=== PATIENT | female | born 2005 | race Caucasian/White ===

== ENCOUNTER 2023-03-03 02:00 | Observation (INO) | payer MEDICAID, SELFPAY ==
[2023-03-03] VITALS (10 sets, daily range): BP systolic 94–118; BP diastolic 53–77; PULSE 56–88; RESP 15–22; TEMP 36.8–37.2; O2SAT 98–100; BMI 20.7
--- NOTE | ~2023-03-03 | XR_ITS ---
XR abdomen/kub 1V DATE: 03/03/2023 04:15 INDICATION: Foreign body/anal beads in the rectum TECHNIQUE: 2 supine AP views of the abdomen COMPARISON: None FINDINGS: There appears to be a series of contiguous rounded mildly radiopaque foreign bodies overlyi ng the sacrum, the largest measuring up to approximately 3 cm diameter. Patient likely within the sig moid colon, well beyond the reach of digital rectal examination. No bowel obstruction is evident. The psoas shadows are intact. No visceromegaly is noted. Included skeletal structures are unremarkable. The lung bases are clear. Heart size appears normal. IMPRESSION: Rounded mildly radiopaque foreign bodies, likely in the sigmoid colon Reviewed, dictated and finalized at [facility]. Reviewed, dictated and finalized at [facility]. IMPRESSION: Rounded mildly radiopaque foreign bodies, likely in the sigmoid col on
--- NOTE | ~2023-03-03 | XR_ITS ---
XR abdomen obstructive series DATE: 03/03/2023 12:30 INDICATION: Anal bead foreign bodies TECHNIQUE: Supine and upright AP and lateral views COMPARISON: None FINDINGS: Faint radiopaque densities are suggested in the distal sigmoid colon. The psoas shadows are intact. No visceromegaly is evident. No abnormal calcification is detected. The re is no evidence of bowel obstruction or intraperitoneal free air. The lung bases are clear. Heart size appears normal. IMPRESSION: Faint radiopaque foreign bodies in the distal sigmoid colon Reviewed, dictated and finalized at [facility]. Reviewed, dictated and finalized at [facility].
--- NOTE | 2023-03-03 03:40 | ED.GENADULT ---
HPI - General Adult General Chief complaint: Unspecified <Toya Antonio PA-C - Last Filed: 03/03/23 17:09> Stated complaint: anal beads stuck in rectum. <Toya Antonio PA-C - Last Filed: 03/03/23 17:09> Time Seen by Provider: 03/03/23 03:36 <Toya Antonio PA-C - Last Filed: 03/03/23 17:09> History of Present Illness HPI narrative: 17-year-old female reports for evaluation of rectal beads stuck in her anus for 2 to 3 hours. Patient reports she feels like the anal beads are going up. denies pain, known rectal bleeding, abdominal pain, nausea, vomiting, diarrhea. She reports she is currently on her menstrual period. <KARIN Jolley Last Filed: 03/03/23 17:09> Related Data Home medications: Home Medications Medication Instructions Recorded Confirmed albuterol sulfate 90 mcg/actuation 2 puff inhalation QID 03/03/23 03/03/23 aerosol inhaler (ProAir HFA) etonogestrel 0.12 mg-ethinyl 1 vag ring vaginal [id number] 03/03/23 03/03/23 estradiol 0.015 mg/24 hr vaginal ring (EluRyng) <Toya Antonio PA-C - Last Filed: 03/03/23 17:09> Allergies/adverse reactions: Allergies Allergy/AdvReac Type Severity Reaction Status Date / Time No Known Allergies Allergy Verified 03/03/23 02:00 <KARIN Jolley Last Filed: 03/03/23 17:09> Review of Systems Review of Systems: CONSTITUTIONAL: Denies fever, chills EYES: Denies visual changes, redness, or discharge. ENT: Denies rhinorrhea, congestion, sore throat, or otalgia. CARDIOVASCULAR: Denies chest pain, palpitations, or edema. RESPIRATORY: Denies cough or dyspnea. GASTROINTESTINAL: Denies abdominal pain, nausea, vomiting, or diarrhea. GENITOURINARY: Denies dysuria or hematuria. SKIN: Denies rash or itching. MUSCULOSKELETAL: Denies back pain, joint pain, or myalgia. NEUROLOGIC: Denies headache, numbness, dizziness, or weakness. PSYCHIATRIC: Denies anxiety or depression. <Toya Antonio PA-C - Last Filed: 03/03/23 17:09> FOR[facility]LY [facility] Social History Social History: Social History Smoking status: Current every day smoker Alcohol intake: current Substance use: current Substance use type: marijuana Lack of Transportation: No Lack of Food: Never True Current Housing: I Have Housing Concerned About Future Housing: No Difficulty Paying Gas/Electric Bills: No Difficulty Paying for Meds: No Currently Unemployed: No Education: High School Diploma/GED Difficulty w/ Childcare or Family Care: No Spiritual care concerns: No <Toya Antonio PA-C - Last Filed: 03/03/23 17:09> Exam Narrative: GENERAL: Well-appearing, well-nourished, and in no acute distress. Patient resting comfortably in exam bed. She is pleasant and conversational. HEAD: Normocephalic, atraumatic. EYES: PERRLA and EOMI. CHEST: Clear to auscultation. No respiratory distress. No wheezes rales or rhonchi HEART: Regular rate and rhythm. No murmur heard. Normal peripheral pulses. ABDOMEN: Soft, nontender, nondistended, normal active bowel sounds. Rectal exam performed without evidence for palpation of foreign body. No rectal lesions, hemorrhoids or fissures. No areas of induration or fluctuation. EXTREMITIES: Normal range of motion. No edema. SKIN: Warm, dry, no rash. NEURO: No focal deficits. Alert and oriented x3. PSYCH: Normal mood and affect. <Toya Antonio PA-C - Last Filed: 03/03/23 17:09> Course [employer]/PA Physician Supervision This is a was performed by both a physician and an APC. I performed all aspects of the MDM as documented w/ the following additions: All questions answered. 17-year-old female presenting with anal beats lodged in her rectum. Patient will be admitted to surgery for removal.Patient in agreement w/ disposition. <Ivan Bonilla MD - Last Filed: 03/06/23 21:55> Vital Signs Vital signs: Vital Signs Tempera
[2023-03-03 04:00] LABS: Basophils Percent Auto 0.4 % (0.2-1.2); Eosinophils Percent Auto 0.3 % (0-4.4); Hematocrit 42.2 % (37.0-47.0); Hemoglobin 13.3 g/dL (12.0-15.0); Immature Granulocyte Absolute 0.02 K/mm3 (0.00-0.031); Immature Granulocyte Percent A 0.2 % (0-0.5); Lymphocytes Absolute Auto 3.22 K/mm3 (0.9-3.2); Lymphocytes Percent Auto 29.3 % (18.3-44.2); Mean Corpuscular HGB Conc 31.5 g/dl (32-36); Mean Corpuscular Hemoglobin 26.3 pg (26-34); Mean Corpuscular Volume 83.4 fl (80-100); Mean Platelet Volume 10.4 fl (7.4-10.4); Monocytes Absolute Auto 0.9 K/mm3 (0.1-0.6); Monocytes Percent Auto 8.2 % (2.6-8.5); Neutrophils Absolute Auto 6.8 K/mm3 (1.3-6.7); Neutrophils Percent Auto 61.6 % (45.5-73.1); Platelet Count Result 319 k/mm3 (150-375); Red Blood Count 5.06 M/mm3 (4.2-5.4); Red Cell Distribution Width 13.9 % (11.5-14.5)
[2023-03-03 04:10] LABS: Alanine Aminotransferase 17 U/L (6-35); Alkaline Phosphatase 53 U/L (45-116); Anion Gap 11 mmol/L (8-16); Aspartate Amino Transferase 24 U/L (14-36); Bilirubin,Total 0.5 mg/dL (0.2-1.3); Blood Urea Nitrogen 12 mg/dL (8-21); Calcium 9.7 mg/dL (8.9-10.7); Carbon Dioxide 26 mmol/L (22-30); Chloride 106 mmol/L (98-107); Estimated CRCL calculation 125 ml/min; Estimated Glomerular Filt Rate > 60; Glucose 96 mg/dL (65-110); Potassium 3.8 mmol/L (3.4-5.0); Sodium 143 mmol/L (134-143)
[2023-03-03 04:15] LABS: Appearance Urine Clear (Clear); Bacteria Urine None Seen /hpf; Bilirubin Urine Negative (Negative); Blood Urine 1+ (Negative); Color Urine Yellow (Yellow); Glucose Urine UA Negative (Negative); Ketones Urine Negative (Negative); Leukocyte Esterase Ur Negative LEU/UL (Negative); Nitrate Urine Negative (Negative); Non Pathogenic Casts 0-2; Protein Urine Negative (Negative); Specific Grav Ur 1.025 (1.001-1.035); Squamous Epithelial Cell Urine None seen /hpf (Few); WBC Urine 0-5 /hpf; pH Urine 6.5 (5.0-9.0)
[2023-03-03 04:28] LABS: Add Urine Microscopic? YES
[2023-03-03] MEDS: SODIUM CHLORIDE 0.9% IV 1,000 ML 125 ML IV CONT (06:19)
--- NOTE | 2023-03-03 06:42 | PC.NURSE ---
pt a&o x4. able to make needs known. pt was educated about the use of a call light, safety precautions, how to call for help. pt resting comfortably in bed. pt is a 17 yo female with foreign body in the rectum. Dr Kim consulted, pt is NPO for the procedure to remove the rectal beads. pt is aware of NPO status, compliant. all needs met at this time, denies pain, nausea. all questions answered.
--- NOTE | 2023-03-03 12:12 | PM.IMHP ---
H&P: HPI History of Present Illness Date/Time: 03/03/23 12:12 Chief Complaint: Rectal foreign body Narrative: Patient is a 17-year-old woman who was using anal beads during intercourse. The beads became lost in the rectum and could not be retrieved. She was seen in the emergency room and plain films showed a rectal foreign body but it was in the sigmoid area. They were not palpable by digital exam per the emergency room provider. Patient was admitted for observation. She is having some mild lower abdominal pain but no severe pain and is quite hungry. She has not had a bowel movement on nor has she had any nausea or vomiting. She describes the beads as about 6-7 inches in length, silicone, with a heart-shaped grasper at 1 end. She is admitted now for rectal foreign body. I have reviewed her plain films with Dr. Zhong, radiologist. The foreign body does seem to be in the sigmoid up near the sacrum and unlikely to be within reach of a digital rectal exam. Review of Systems Review of Systems: All systems reviewed & are unremarkable except as noted in HPI and below (HPI and those items noted below) Constitutional: Constitutional: Denies chills and Denies fever(s) Cardiovascular: Cardiovascular: Denies chest pain, Denies diaphoresis, Denies dyspnea and Denies paroxysmal nocturnal dyspnea Respiratory: Respiratory: Denies chest congestion, Denies cough and Denies dyspnea Integumentary/Breasts: Skin/Breast: Denies lesions and Denies rash PMFSH Social History Social History Smoking status: Current every day smoker Alcohol intake: current Substance use: current Substance use type: marijuana Lack of Transportation: No Lack of Food: Never True Current Housing: I Have Housing Concerned About Future Housing: No Difficulty Paying Gas/Electric Bills: No Difficulty Paying for Meds: No Currently Unemployed: No Education: High School Diploma/GED Difficulty w/ Childcare or Family Care: No Spiritual care concerns: No Meds Home Medications and Allergies Home Medications Medication Instructions Recorded Confirmed Type albuterol sulfate 90 mcg/actuation 2 puff inhalation QID 03/03/23 03/03/23 History aerosol inhaler (ProAir HFA) etonogestrel 0.12 mg-ethinyl 1 vag ring vaginal [id number] 03/03/23 03/03/23 History estradiol 0.015 mg/24 hr vaginal ring (EluRyng) Allergies Allergy/AdvReac Type Severity Reaction Status Date / Time No Known Allergies Allergy Verified 03/03/23 02:00 Vital Signs Vital Signs - 24 hr 03/03/23 02:02 03/03/23 02:22 03/03/23 02:31 Temperature 37.2 C Pulse Rate 88 73 87 Respiratory Rate 18 16 22 H Blood Pressure 114/69 113/77 Pulse Oximetry 99 100 100 Oxygen Delivery 03/03/23 03:00 03/03/23 04:14 03/03/23 05:00 Temperature Pulse Rate 69 66 62 Respiratory Rate 19 15 16 Blood Pressure Pulse Oximetry 99 100 100 Oxygen Delivery 03/03/23 05:33 03/03/23 05:53 03/03/23 06:00 Temperature 36.8 C Pulse Rate 60 60 56 L Respiratory Rate 16 16 20 Blood Pressure 104/60 94/53 L Pulse Oximetry 100 100 98 Oxygen Delivery Room Air Exam Const: General: comfortable, no acute distress, alert and awake HENMT: Head: normocephalic and atraumatic Mouth: Yes Normal oral and palatal mucosa present Eyes: Conjunctivae: conjunctivae normal Pupils: Equal, round and reactive pupils present EOM: EOMs intact bilaterally Neck: Neck: normal visual inspection, no lymphadenopathy and nontender Resp: Effort & Inspection: normal respiratory effort Auscultation: clear to auscultation bilaterally Cardio: Rate: regular rate Rhythm: regular rhythm Heart sounds: no gallops, no murmurs and no rubs GI: Inspection: non-distended, scaphoid and no scars GI Palp: Yes Soft to palpation, No Tenderness to palpation present (GI), No Hepatomegaly present, No Splenomegaly present, No Hernia present, No Pal
[2023-03-03] MEDS: ALBUTEROL SULFATE (*SP) AEROSOL 1 PUFF 2 PUFF INHALATION (13:31)
--- NOTE | 2023-03-04 16:25 | PM.DS ---
DS: Admitting Diagnosis Discharge Date 03/03/23 Admitting Diagnosis Rectal foreign body DS: Discharge Diagnosis Discharge Diagnosis (1) Foreign body anus/rectum: Qualifiers: Encounter type: initial encounter Qualified Code(s): T18.5XXA - Foreign body in anus and rectum, initial encounter Code(s): T18.5XXA - Foreign body in anus and rectum, initial encounter Status: Acute DS: Summary Hospital Course Hospital Course: Patient was seen in the emergency room early in the morning of 03/03/2023. She had a history of using anal beads and having lost the beads in her rectum. The beads were not within the reach of the examiner's finger in the emergency room. X-ray showed them to be in the area of the sigmoid colon. Patient was brought in the hospital for observation. She was given to do collects tabs. She did pass the anal the this on her own following the laxative. She was comfortable and able to be discharged later in the day on 03/03/2023. Status at Discharge Functional status at discharge: independent ambulation Overall status at discharge: patient is back to baseline Time Spent with Patient Time attestation: Total time spent providing and/or coordinating discharge services: Time spent: Less than 30 minutes Discharge Plan Discharge Attending physician on discharge: Radames Kim Consulting providers: Darío Zhong ; Toya Antonio Discharging Clinician: Radames Kim Anticipated Discharge Date/Time: 03/03/23 14:23 Patient Disposition: Home, Self-Care Activity: as tolerated Diet: regular Discharge Instructions: Follow up with your PCP or Dr. Kim as needed Patient Instructions: Antibiotic Form, Rectal Foreign Body (DC) Stand Alone Forms: General Discharge Information Follow-up/Referrals: Radames Kim MD [Physician] - Discharge Medications: Continued albuterol sulfate [ProAir HFA] 90 mcg/actuation HFA aerosol inhaler 2 puff INHALATION QID etonogestrel-ethinyl estradiol [EluRyng] 0.12-0.015 mg/24 hr ring 1 vag ring VAGINAL [id number] Date of admission: 03/03/23 05:02 Primary Care Provider: Ruperto,Veronika Salazar Admitting Provider: Radames Kim Attending physician on admission: Radames Kim Condition: Stable
== END 2023-03-03 14:40 | disposition home or self-care (01) ==
LOC: ANHED 04:43 → ANH2MED 05:43
PROVIDERS: Admitting Provider Surgery; Emergency Provider Physician Assistant; PCP Pediatrics; Visit Provider Surgery
DX: T18.5XXA Foreign body in anus and rectum, initial encounter (principal); X58.XXXA Exposure to other specified factors, initial encounter; R10.30 Lower abdominal pain, unspecified; F17.210 Nicotine dependence, cigarettes, uncomplicated; F10.90 Alcohol use, unspecified, uncomplicated; F12.90 Cannabis use, unspecified, uncomplicated; Z79.51 Long term (current) use of inhaled steroids; Z97.5 Presence of (intrauterine) contraceptive device
CPT/HCPCS: 36415; 74018; 74019; 80053; 81001; 81025; 85025; 99285; A9270; G0378; J7030

== ENCOUNTER 2024-08-13 01:59 | Day surgery (SDC) | payer OTHER, SELFPAY ==
[2024-08-11 13:38] VITALS: BMI 18.2
--- NOTE | 2024-08-11 13:39 | PCDIET ---
Report to the Outpatient Waiting Room, entrance under the green pavilion located off [facility], at time _0800_ on date _[id number]_. Planned Procedure Time: _1000_.? Time changes happen often and if your time is changed the preop area will call you the afternoon before. - You and your visitor will be asked to self-screen and do not enter if you have any COVID symptoms. Please call surgeon if you need to reschedule. - A mask is optional within the hospital at this time. Patients may have clear liquids (water, carbonated beverages, clear teas, apple juice) until 3 hours prior to surgery with a maximum of 20 ounces. - No food from midnight until time of surgery and no smoking Take only the following medications with a SIP of water on the morning of surgery: ___Tramadol if needed. DO NOT STOP ANY OF YOUR OTHER PRESCRIPTION MEDICATIONS PRIOR TO SURGERY EXCEPT THE FOLLOWING Medications to discontinue per physician ____None Please no make-up, nail british, hairspray, perfume, deodorant, or body powder the day of surgery.? No jewelry (including any body piercings) or valuables the day of surgery, leave them at home.? Please take a shower or bath the night before, or the morning of, surgery with an antibacterial soap.? Wear comfortable, loose fitting clothing.? - Jewelry must be removed prior to entering the operating room.? Rings and piercings that are not removed may be cut off. - The hospital will not accept responsibility for valuables.? - Please leave all valuables, including medications, at home the day of surgery. If you are going home after surgery, a licensed water tanker driver must drive you home.? - NO public transportation without another adult if you receive anesthesia. - We recommend that an adult stay with you for 24 hours following discharge. - We also recommend that you do not drive, make important decision, drink alcoholic beverages, or take any drugs that were not prescribed by your health care provider for at least 24 hours after your discharge time. Follow any additional instructions given to you from your surgeon. Telephone instructions given to __Raquel___and asked if any additional questions and then verbalized understanding. Patient advised to call surgeon office or pre surgery nurse liaison [phone] if any additional questions.
[2024-08-13] VITALS (10 sets, daily range): BP systolic 95–127; BP diastolic 53–90; PULSE 52–86; RESP 16–22; TEMP 36.6–36.7; O2SAT 99–100
[2024-08-13] MEDS: ACETAMINOPHEN 500 MG TABLET 1000 MG PO (08:52)
[2024-08-13] MEDS: LACTATED RINGERS 1,000 ML 30 ML IV CONT ×2 (09:00→11:50)
--- NOTE | 2024-08-13 09:13 | WPDANESEPPF ---
Anes - Initial Pre Proc Eval Procedure: Operation Date: 08/13/24 10:00 Proposed Procedures p Laparoscopic Right Ovarian Cystectomy - Austin Perdomo MD Date/Time: 08/13/24 09:13 Surgeon: Austin Perdomo MD Pre Op Diagnosis: acute pelvic pain Patient Data Age: 19 Gender: F Height: 1.73 m Weight: 56.5 kg Last Vital Signs Temp 36.6 C 08/13/24 08:54 Pulse 53 L 08/13/24 08:54 Resp 16 08/13/24 08:54 BP 110/55 L 08/13/24 08:54 Pulse Ox 100 08/13/24 08:54 O2 Del Method Room Air 08/13/24 08:54 Allergies Allergy/AdvReac Type Severity Reaction Status Date / Time No Known Allergies Allergy Verified 08/13/24 08:52 Home Medications Medication Instructions Recorded Confirmed Type albuterol sulfate 90 mcg/actuation 2 puff inhalation QID PRN Dyspnea 03/03/23 08/11/24 History aerosol inhaler (ProAir HFA) tramadol 50 mg tablet 50 mg PO Q8H PRN Pain 08/11/24 08/11/24 History Patient hx anesthesia problems: post op nausea/vomiting Family hx anesthesia problems: none Results Review: All pre-operative results and documents have been reviewed as part of the pre-operative evaluation. COUNT INCLUDES THE [facility] Social History Social History Smoking status: Current every day smoker Tobacco type: e-cigarettes/vaping Alcohol intake: current Substance use: current Substance use type: marijuana Other substance usage details: every other day Lack of Transportation: No Lack of Food: Never True Current Housing: I Have Housing Concerned About Future Housing: No Difficulty Paying Gas/Electric Bills: No Difficulty Paying for Meds: No Currently Unemployed: No Education: High School Diploma/GED Difficulty w/ Childcare or Family Care: No Spiritual care concerns: No Anes - Eval Final PreProcedure Day of Procedure 08/13/24 09:13 Patient weight: normal Heart: regular rate and rhythm Lungs: clear to auscultation Airway: Mallampati scale class II Neurological: alert and oriented Last oral intake: >/= 8 hours ASA classification: III Emergent: no Anesthetic plan: proceed Anesthesia type and monitoring: general ETT and standard monitoring Results Review: All pre-operative results and documents have been reviewed as part of the pre-operative evaluation. Informed Consent: The patient's anesthetic plan and its attendant risks and benefits were discussed with the patient/family/POA. Questions were solicited and answers provided to the satisfaction of the patient/family/POA.
--- NOTE | 2024-08-13 09:55 | WPDHPUPDATE1 ---
History and Physical Update Update Date/Time: 08/13/24 09:55 History and Physical has been reviewed, including an updated exam of the patient. There are NO changes in the patient's condition. Risks, benefits, and alternatives have been discussed and questions answered. Patient agrees to proceed with procedure.
--- NOTE | 2024-08-13 11:29 | P.OP_ITS ---
Procedure Note - Detailed Date of Procedure 08/13/24 Pre-op Diagnosis acute pelvic pain , ovarian cyst Post-op Diagnosis Same Procedure Performed Diagnostic laparoscopy Surgeon Austin Perdomo MD Anesthesia General Indications Pelvic pain Findings a very large - 8 cm-right ovarian cyst. Hemorrhagic with strongly blood-tinged fluid -thin fluid. Appeared benign. Subtle pelvic lesions -possibly consistent with endometriosis. Punctate and vesicular vesicular area Description of Procedure The patient was taken to the operating room. She was prepped and draped in the dorsal lithotomy position after induction general anesthesia. A 5 mm incision was made with a scalpel on the abdominal skin in the left upper quadrant of the abdomen. A 5 mm trocar was inserted into the intra-abdominal cavity under dire ct visualization the scope. In the same fashion a 5 mm left lower quadrant trocar was inserted and a 5 mm infraumbilical trocar was inserted. right ovarian cystectomies performed. Using LigaSure cautery the ovarian cyst was removed from the right ovary. The large cyst capsule was cut into strips and taken out the left lower quadrant trocar site. Peritoneal biopsies were performed with sharp and blunt dissection in the bilateral pelvic sidewalls. The pelvis was irrigated. The pneumoperitoneum was reduced. The trocars were removed. Skin was closed with subcuticular 4 micro. The patient's incisions were covered with Dermabond. She was taken recovery room in stable condition. Sponge lap and needle counts were correct x2. Estimated Blood Loss 20 Complications No immediate complications Condition Stable Disposition Same day
[2024-08-13] MEDS: fentaNYL CITRATE INJ (*CRX) 100 MCG/2 ML VIAL 25 MCG IV PUSH ×8 (11:35→11:58)
[2024-08-13] MEDS: HYDROmorphone HCL INJ (*CRX) 1 MG/ML SYR IV PUSH ×2 (12:08→12:19)
[2024-08-13] MEDS: oxyCODONE HCL (*CRX) 2.5 MG TAB IR PO (13:09)
[2024-08-13] MEDS: ONDANSETRON INJ 4 MG/2 ML VIAL IV PUSH (13:10)
== END 2024-08-13 14:17 | disposition home or self-care (01) ==
PROVIDERS: Visit Provider Obstetrics & Gynecology
PROC: (CPT 49320; principal; 2024-08-13 10:00)
DX: N83.291 Other ovarian cyst, right side (principal); J45.909 Unspecified asthma, uncomplicated; F12.90 Cannabis use, unspecified, uncomplicated; Z79.51 Long term (current) use of inhaled steroids; Z79.891 Long term (current) use of opiate analgesic; G89.18 Other acute postprocedural pain; F17.290 Nicotine dependence, other tobacco product, uncomplicated; Z98.890 Other specified postprocedural states; Z80.3 Family history of malignant neoplasm of breast
CPT/HCPCS: 58662; 88305; A9270; J1100; J1170; J1596; J2250; J2405; J2704; J3010; J7030; J7120